=== PATIENT | female | born 1950 | race Asian ===

== ENCOUNTER 2017-05-18 09:53 | Emergency (ER) | payer MEDICARE, BC ==
[~2017-05-18] VITALS: Ht 165.1 cm; Wt 83.0 kg
[~2017-05-18 09:53] MED LIST: CEPH-569 PO; FAMO20TA8 PO; METFORMIN
[2017-05-18] MEDS ORDERED: SODIUM CHLORIDE 0.9% 1,000 ML IV ONE (10:15)
[2017-05-18] MEDS ORDERED: ONDANSETRON HCL 4MG/2ML VIAL IV ONE (10:15)
[2017-05-18 10:41] LABS: HEMOGLOBIN. 14.1 g/dL (12.0-16.0); MEAN CORPUSCULAR HEMOGLOBIN 26.8 pg (28.0-32.0); MEAN PLATELET VOLUME 9.8 fl (7.4-10.4); PLATELET 163 x1000/uL (130-400); RED BLOOD CELL COUNT 5.25 mill/uL (4.2-5.4); RED CELL DISTRIBUTION WIDTH 16.9 % (11.6-14.6)
[2017-05-18 10:55] LABS: PARTIAL THROMBOPLASTIN TIME 26.8 sec (24.0-34.0); PROTHROMBIN TIME 10.5 sec
[2017-05-18 10:57] LABS: CARBON DIOXIDE 26 mEq/L (21-32); CHLORIDE 102 mEq/L (98-107); TROPONIN I < 0.02 ng/mL (0.00-0.04)
[2017-05-18 11:14] LABS: PLATELET ESTIMATE NORMAL
[2017-05-18] MEDS ORDERED: POTASSIUM CHLORIDE 20MEQ TABLET SR PO ONE (11:15)
[2017-05-18 12:50] VITALS: BP 128/82
== END 2017-05-18 13:26 | disposition home or self-care (01) ==
LOC: ER 09:54
DX: E86.0 Dehydration (principal); E87.6 Hypokalemia; E11.9 Type 2 diabetes mellitus without complications; E78.00 Pure hypercholesterolemia, unspecified; I10 Essential (primary) hypertension; Z85.79 Personal history of other malignant neoplasms of lymphoid, hematopoietic and related tissues; Z90.710 Acquired absence of both cervix and uterus
CPT/HCPCS: 36415; 70450; 71010; 80053; 84484; 85025; 85610; 85730; 93005; 96361; 96374; 99285; J2405; J7030